=== PATIENT | male | born 1995 | race Asian ===

== ENCOUNTER 2016-06-21 23:38 | Emergency (ER) | payer BC ==
--- NOTE | 2016-06-22 00:22 | ED ---
Abdominal Pain/Male - HPI Summary HPI Summary: The patient is a 20 year old male presenting to ED for complaint of right sided abdominal pain x3 weeks. Describes a constant pain worse after eating. Denies associated fever, chills, diaphoresis, chest pain, cough, shortness of breath, nausea, vomiting, diarrhea, dysuria, change in voiding, hematuria. Denies significant past medical or surgical history. Denies family history. SH: Student at [employer]. - History of Current Complaint Chief Complaint: EDAbdPain Stated Complaint: RLQ ABD PAIN Time Seen by Provider: 06/22/16 00:04 Pain Intensity: 7 - Allergies/Home Medications Allergies/Adverse Reactions: Allergies Allergy/AdvReac Type Severity Reaction Status Date / Time No Known Allergies Allergy Verified 06/21/16 23:43 PMH/Surg Hx/FS Hx/Imm Hx Infectious Disease History: No Infectious Disease History: Denies: Traveled Outside the [place] in Last 30 Days Review of Systems Constitutional: Negative Cardiovascular: Negative Respiratory: Negative Positive: Abdominal Pain. Negative: Vomiting, Diarrhea, Nausea Genitourinary: Negative Negative: dysuria, hematuria Musculoskeletal: Negative Skin: Negative Negative: Rash All Other Systems Reviewed And Are Negative: Yes Physical Exam Triage Information Reviewed: Yes Vital Signs On Initial Exam: Initial Vitals Temp Pulse Resp BP Pulse Ox 99.1 F 85 16 130/76 100 06/21/16 23:42 06/21/16 23:42 06/21/16 23:42 06/21/16 23:42 06/21/16 23:42 Vital Signs Reviewed: Yes Appearance: Positive: Well-Appearing - seated upright in bed speaking calmly without guarding or grimace, No Pain Distress, Well-Nourished Skin: Positive: Warm, Skin Color Reflects Adequate Perfusion, Dry Head/Face: Positive: Normal Head/Face Inspection Eyes: Positive: Other: - Anicteric ENT: Positive: Hearing grossly normal, Other - Oral mucosa moist Neck: Positive: Supple, Nontender, No Lymphadenopathy Respiratory/Lung Sounds: Positive: Clear to Auscultation, Breath Sounds Present. Negative: Decreased Breath Sounds, Rales, Rhonchi, Wheezes Cardiovascular: Positive: Normal, RRR - radial pulse 2+, S1, S2. Negative: Murmur, Rub Abdomen Description: Positive: No Organomegaly, Soft, Other: - minimal tenderness RUQ and right flank; no rebound; no peritonitis. Negative: CVA Tenderness (R), CVA Tenderness (L), Distended, Guarding, Hepatomegaly, McBurney' s Point Tenderness, Peritoneal Signs, Splenomegaly Bowel Sounds: Positive: Present Musculoskeletal: Positive: Normal - AROM all extremities Neurological: Positive: Normal - awake, alert, Facial Symmetry, Speech Normal Psychiatric: Positive: Normal AVPU Assessment: Alert Diagnostics - Vital Signs Vital Signs Temp Pulse Resp BP Pulse Ox 06/21/16 23:42 99.1 F 85 16 130/76 100 - Laboratory Result Diagrams: 06/22/16 01:00 06/22/16 01:00 Lab Statement: Any lab studies that have been ordered have been reviewed, and results considered in the medical decision making process. Re-Evaluation - Re-Evaluation First Eval Re-Evaluation Time: 03:27 Change: Unchanged Comment: Discussed with patient labs, urine, and US results. Is agreeable with plan to obtain CT abd/pelv. Declines need for analgesic. Abdominal Pain Fem Course/Dx - Diagnoses Provider Diagnoses: Abdominal pain - Provider Notifications Discussed Care Of Patient With: Signed out to Dr. Durant [id number]. Discharge - Discharge Plan Condition: Stable Disposition: OTHER Discharge Disposition Comment: Signed out to Dr. Durant
[2016-06-22 01:15] LABS: Hematocrit 43 % (42-52); Hemoglobin 14.4 g/dl (14.0-18.0); Mean Corpuscular HGB Conc 34 g/dl (31-36); Mean Corpuscular Hemoglobin 30 pg (27-31); Mean Corpuscular Volume 89 fL (80-94); Mean Platelet Volume 9 um3 (7.4-10.4); Red Blood Count 4.78 10^6/ul (4.0-5.4); Red Cell Distribution Width 13 % (10.5-15); White Blood Count 10.9 10^3/ul (3.5-10.8)
[2016-06-22 01:17] LABS: Urine Bilirubin Negative (Negative); Urine Glucose Negative (Negative); Urine Nitrite Negative (Negative)
[2016-06-22 01:33] LABS: Albumin 4.8 g/dL (3.2-5.2); Calcium 9.7 mg/dL (8.6-10.3); EGFR African American 115.8 (>60); Globulin 2.8 g/dL (2-4); Potassium 3.8 mmol/L (3.5-5.0); Total Bilirubin 0.8 mg/dL (0.2-1.0); Total Protein 7.6 g/dL (6.4-8.9)
[2016-06-22] MEDS ORDERED: Iohexol 300* (CONTRAST) 10 ML SDV IV ONE (04:37)
--- NOTE | 2016-06-22 05:39 | ED ---
Fidel Frausto Matthew, scribed for Alex Durant on 06/22/16 at 0538 . Progress - Progress Note Progress Note: The patient was a sign out from [facility] The patient will be discharged home in stable condition and follow-up with his PCP. - Results/Orders Results/Orders: A/P W CT Impression: Normal appendix No inflammatory process identified in the abdomen and pelvis No abdominal mass, adenopathy or collection seen. Re-Evaluation - Re-Evaluation First Eval Re-Evaluation Time: :27 Change: Unchanged Comment: Discussed with patient labs, urine, and US results. Is agreeable with plan to obtain CT abd/pelv. Declines need for analgesic. Course/Dx - Diagnoses Provider Diagnoses: Abdominal pain - Provider Notifications Discussed Care Of Patient With: Signed out to Dr. Durant [id number]. The documentation as recorded by the scribeFidel Matthew accurately reflects the service I personally performed and the decisions made by , Alex Durant.
[2016-06-22 05:46] VITALS: BP 98/51
--- NOTE | 2016-06-22 07:49 | RAD ---
HISTORY: Right upper quadrant tenderness, right lower quadrant pain COMPARISONS: None TECHNIQUE: Multiple transverse and longitudinal ultrasound images were obtained of the right upper and lower quadrants of the abdomen using grayscale and color Doppler imaging. FINDINGS: LIVER: The liver is normal in shape, size, contour, and echogenicity. There are no focal parenchymal masses. There is normal hepatopedal flow of the portal vein on Doppler imaging. BILIARY TREE: There is no intrahepatic or extrahepatic biliary dilatation. The common duct measures 0.6 cm. GALLBLADDER: The gallbladder is well-visualized. There is no cholelithiasis, gallbladder wall thickening, pericholecystic fluid, or sonographic Monroe sign. PANCREAS: The head of the pancreas is unremarkable. The tail of the pancreas is not well visualized secondary to overlying bowel gas. RIGHT KIDNEY: The right kidney is normal in shape, size, contour, and echogenicity. There is no hydronephrosis or nephrolithiasis. The right kidney measures 10.2 x 4 x 5.7 cm. AORTA AND IVC: The aorta and IVC are unremarkable. FLUID: There are no pleural effusions. There is no free fluid within the hepatorenal recess. OTHER FINDINGS: The appendix is not identified. No free or loculated fluid is noted within the right lower quadrant. IMPRESSION: NO ACUTE SONOGRAPHIC PATHOLOGY OF THE VISUALIZED PORTION OF THE ABDOMEN.
--- NOTE | 2016-06-22 08:13 | RAD ---
CLINICAL HISTORY: Right lower quadrant pain COMPARISON: None TECHNIQUE: Multiple contiguous axial CT scans were obtained of the abdomen and pelvis after the administration of intravenous contrast. Coronal and sagittal multiplanar reformations are submitted for review. Oral contrast was administered. Delayed images were obtained through the abdomen FINDINGS: LUNG BASES: The lung bases are clear. LIVER: The liver is normal in shape, size, contour, and attenuation. BILE DUCTS: There is no intrahepatic or extrahepatic biliary dilatation. GALLBLADDER: The gallbladder is normal, without pericholecystic inflammatory change. PANCREAS: The pancreas is normal, without mass or ductal dilatation. SPLEEN: Normal in size and appearance. UPPER GI TRACT: Evaluation of the gastrointestinal tract is limited by incomplete gastric distention. The upper GI tract is unremarkable. SMALL BOWEL AND MESENTERY: The small bowel is normal in contour, course, and caliber. There is no obstruction or dilatation. COLON: The colon is normal in contour, course, caliber. There is no pericolonic inflammatory change. There is large amount of stool throughout the colon. There is a tubular, vermiform, hollow viscus that is blind ending, and originates from the cecum, consistent with a normal appendix. There is no periappendiceal inflammatory change. This is best seen on axial images 111 through 122 ADRENALS: Normal bilaterally. KIDNEYS: The kidneys are normal in shape, size, contour, and axis. There is no hydronephrosis or nephrolithiasis. 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 BLADDER: The bladder is smooth in contour. PELVIC ORGANS: The prostate gland is normal. The seminal vesicles are symmetric. AORTA: The aorta is normal. IVC: Unremarkable LYMPH NODES: There is no lymphadenopathy by size criteria. ABDOMINAL WALL: There is no evidence for abdominal wall hernia. BONES AND SOFT TISSUES: The bones and soft tissues are unremarkable. OTHER: None IMPRESSION: NORMAL APPENDIX. NO ACUTE CT PATHOLOGY OF THE VISUALIZED ABDOMEN OR PELVIS.
== END 2016-06-22 05:46 | disposition home or self-care (01) ==
LOC: ED 23:38
DX: R10.31 Right lower quadrant pain (principal)
CPT/HCPCS: 36415; 74177; 76705; 80053; 81003; 83690; 85025; 99283; Q9967

== ENCOUNTER 2018-01-06 16:47 | Emergency (ER) | payer BC, OTHER ==
[2018-01-06 17:34] VITALS: BP 127/84
--- NOTE | 2018-01-06 17:37 | UC ---
Complaint Male HPI - HPI Summary HPI Summary: The pt is a 22 y/o male presenting to complaining of dysuria since 4 days ago worse 2 days ago. He feels like he gets the urge to urinate but is unable to empty his bladder completely. The pain described as burning rated 2/10 in severity. He notes subjective fever, dull R flank pain, and slightly reduced BM but denies loss of appetite, testicular pain, penile discharge, polydipsia, and diarrhea. The pt is not sexually concerned and is not concerned about STIs. He does not have a PCP currently. This is scribe Ragini Peterson documenting for attending Dr. Cyril Guillermo. I, Dr. Cyril Guillermo personally performed the services described in this documentation as scribed in my presence and it is both accurate and complete. - History of Current Complaint Chief Complaint: UCGU Stated Complaint: BURNING URINATION Time Seen by Provider: 01/06/18 17:29 Hx Obtained From: Patient Onset/Duration: Gradual Onset, Lasting Days - 4 days, Still Present, Worse Since - 2 days ago Timing: Constant Severity Initially: Mild Severity Currently: Mild Pain Intensity: 3 Pain Scale Used: 0-10 Numeric Location: Groin Character: Burning Associated Signs And Symptoms: Positive: Back Pain - R flank pain, Fever - Subjective, Dysuria, Constipation. Negative: Appetite - Negative: Loss of appetite, Penile Discharge - Allergies/Home Medications Allergies/Adverse Reactions: Allergies Allergy/AdvReac Type Severity Reaction Status Date / Time No Known Allergies Allergy Verified 01/06/18 17:37 PMH/Surg Hx/FS Hx/Imm Hx Previously Healthy: Yes - Denies PMHx of HTN, DM and HLD - Surgical History Surgical History: None - Family History Known Family History: Negative: Cardiac Disease, Hypertension, Diabetes - Social History Occupation: Unemployed Lives: With Family Alcohol Use: Weekly Substance Use Type: None Smoking Status (MU): Never Smoked Tobacco Review of Systems Constitutional: Fever - Subjective Gastrointestinal: Negative - Diarrhea , loss of appetite, polydipsia Genitourinary: Negative - Penile discharge, testicular pain, Dysuria, Urgency Musculoskeletal: Other: - Positive: R flank pain All Other Systems Reviewed And Are Negative: Yes Physical Exam - Summary Physical Exam Summary: General: well-appearing, no acute distress Skin: warm, color reflects adequate perfusion, dry Head: normal Eyes: EOMI, ARACELIS ENT: normal Neck: supple, nontender Respiratory: CTA, breath sounds present Cardiovascular: RRR Abdomen: soft ; CVA tenderness; mild tenderness to percussion of RLQ ; no rebound Bowel: present Musculoskeletal: normal, strength/ROM intact Neurological: sensory/motor intact, A&O x3 Psychological: affect/mood appropriate Triage Information Reviewed: Yes Vital Signs: Initial Vital Signs Temp 99.6 F 01/06/18 17:29 Pulse 54 01/06/18 17:29 Resp 16 01/06/18 17:29 BP 127/84 01/06/18 17:29 Pulse Ox 100 01/06/18 17:29 Vital Signs Reviewed: Yes Re-Evaluation - Re-Evaluation First Eval Re-Evaluation Time: 18:14 Change: Unchanged - Discussed the discharge plan with the patient and the patient is agreeable with this plan. Complaint Male Course/Dx - Course Course Of Treatment: WILL TREAT PROSTATITIS. NOT SEXUALLY ACTIVE. DISCUSSED UA RESULTS WITHTHE PATIENT. NO POLYDIPSIA, NO GLUCOSE/KETONES IN URINE. PAIN NOT SEVERE IN A KIDNEY STONE AT THIS TIME. GOOD APPETITIE AND NO RLQ REBOUND. DISCUSSES S/SX OF APPENDICITIS. PATIENT KNOW TO GO TO ED IF WORSE. - Differential Dx/Diagnosis Provider Diagnoses: DYSURIA. RLQ ABDOMINAL PAIN. RT FLANK PAIN Discharge - Sign-Out/Discharge Documenting (check all that apply): Patient Departure - Discharge Plan Condition: Stable Disposition: HOME Prescriptions: Sulfamethox/Trimethoprim DS* [Bactrim DS 800/160 TAB*] 1 tab PO BID #28 tab Patient Education Materials: Dysuria (ED), Abdominal Pain (ED), Flank Pain (ED) Referrals: [facility] [place] [place] [facility] REFERRAL [Outside] Additional Instructions: FOLLOW UP WITH YOUR DOCTOR IF NOT COMPLETELY IMPROVED. GET RECHECKED FOR ANY WORSENING OF YOUR CONDITION; NAUSEA, PAIN, FEVER, YOU FEEL ILL OR QUESTIONS OR CONCERNS. - Billing Disposition and Condition Condition: STABLE Disposition: Home
== END 2018-01-06 18:15 | disposition home or self-care (01) ==
LOC: UCEAST 16:47
DX: R30.0 Dysuria (principal); R10.31 Right lower quadrant pain; M54.9 Dorsalgia, unspecified
CPT/HCPCS: 81003; 87086; 99212; G0463

== ENCOUNTER → 2018-03-27 12:47 | Emergency (ER) | payer OTHER ==
[~2018-03-27 12:47] MED LIST: Meclizine TAB* 12.5 MG PO ONE; NS 0.9% 1000 ML* 2,000 ML IV ONE
[2018-03-27 13:50] LABS: ABS Basophils 0.1 10^3/ul (0-0.2); ABS Eosinophils 0 10^3/ul (0-0.6); ABS Lymphocytes 1.4 10^3/ul (1.0-4.8); ABS Monocytes 0.3 10^3/ul (0-0.8); ABS Neutrophils 2.6 10^3/ul (1.5-7.7); ABS Nucleated RBC 0 10^3/ul; Eosinophil % 0.5 % (0-6); Hematocrit 45 % (42-52); Hemoglobin 15.4 g/dl (14.0-18.0); Mean Corpuscular HGB Conc 34 g/dl (31-36); Mean Corpuscular Hemoglobin 31 pg (27-31); Mean Corpuscular Volume 90 fL (80-94); Mean Platelet Volume 8.8 um3 (7.4-10.4); Nucleated Red Blood Cells % 0; Platelet Count 235 10^3/ul (150-450); Red Blood Count 5.02 10^6/ul (4.00-5.40); Red Cell Distribution Width 13 % (10.5-15); White Blood Count 4.4 10^3/ul (3.5-10.8)
[2018-03-27 14:09] LABS: Urine Appearance Clear; Urine Blood Negative (Negative); Urine Color Straw; Urine Ketones Negative (Negative); Urine Protein Negative (Negative); Urine Specific Gravity 1.005 (1.010-1.030); Urine Urobilinogen Negative (Negative)
[2018-03-27 14:10] LABS: EGFR Non-African American 99.1 (>60)
--- NOTE | 2018-03-27 14:20 | ED ---
Dizziness - HPI Summary HPI Summary: A 22 y/o M presents to ED with c/o sudden-onset dizziness four days ago, lasting 2 seconds. Hes been having similar episodes more frequently in the past four days. The dizziness usually occurs when hes focusing, reading. Associated sx: lightheaded, as if he might pass out; occipital KURTZ described as pressure and throbbing. Hes been having intermittent fevers/hot flashes for two weeks. Pt also notes chronic urinary retention and hesitancy for past six months. Hes unsure if the dizziness is related. He denies photophobia, blurry vision, diplopia, seeing spots, n/v, dysuria, testicular pain, genital swelling or nodules, early satiety. Associated sx: Mild diffuse abd pain; diarrhea onset 2-3 weeks. The diarrhea usually resolves the abd pain. Pt was seen at [facility] , and given a 7-day course of Bactrim. Urine culture showed no growth. The diarrhea began after the course of ABX. No daily medications, NKDA. Vital signs while in room: HR 69 bpm, BP 122/84. Home Medications Medication Instructions Recorded Confirmed Type NK [No Home Medications Reported] 03/27/18 03/27/18 History - History Of Current Complaint Chief Complaint: EDDizziness Stated Complaint: DIZZINESS X4DAYS/FEVER Time Seen by Provider: 03/27/18 12:54 Hx Obtained From: Patient Onset/Duration: Resolved, Suddenly Timing: Intermittent Episode Lasting - lasting seconds; occuring multiple times over 4 days Severity Initially: Moderate Severity Currently: Moderate Character: Lightheaded, Dizzy Aggravating Factor(s): Other - studying / focusing Alleviating Factor(s): Nothing - spontaneous resolution Associated Signs And Symptoms: Positive: Diarrhea, Fever - subjective, Other: - pos: KURTZ, urinary retention and hesitancy, mild abd pain. neg: photophobia, blurry vision, diplopia, seeing spots, n/v, dysuria, testicular pain, genital swelling or nodules, early satiety.. Negative: Visual Changes - Allergies/Home Medications Allergies/Adverse Reactions: Allergies Allergy/AdvReac Type Severity Reaction Status Date / Time No Known Allergies Allergy Verified 01/06/18 17:37 PMH/Surg Hx/FS Hx/Imm Hx Previously Healthy: Yes Endocrine/Hematology History: Denies: Hx Diabetes Cardiovascular History: Denies: Hx Hypertension History: Denies: Hx Dialysis, Hx Renal Disease - Surgical History Surgery Procedure, Year, and Place: none Infectious Disease History: No Infectious Disease History: Denies: Traveled Outside the [place] in Last 30 Days - Family History Known Family History: Negative: Cardiac Disease, Hypertension, Diabetes Family History: pos: prostate CA (grandfather); neg: migraines, neurological disease, sudden - Social History Occupation: Employed Full-time Lives: Dormitory/Roommates Alcohol Use: Weekly Hx Substance Use: Yes Substance Use Type: Reports: Marijuana Substance Use Comment - Amount & Last Used: biweekly Hx Tobacco Use: No Smoking Status (MU): Never Smoked Tobacco Review of Systems Positive: Fever - subjective Negative: Photophobia, Blurred Vision, Diplopia Cardiovascular: Negative Respiratory: Negative Positive: Abdominal Pain, Diarrhea. Negative: Vomiting, Nausea Positive: other - pos: urinary retention and hesitancy. neg: testiucular pain. Negative: dysuria Skin: Negative Neurological: Other - pos: dizziness/lightheadedness Positive: Headache Psychological: Normal All Other Systems Reviewed And Are Negative: Yes Physical Exam - Summary Physical Exam Summary: Appearance: Well-appearing, moderate pain distress with occipital headache, well -nourished Skin: Warm, color reflects adequate perfusion, dry Head: Normal Head/Face inspection, atraumatic Eyes: Conjunctiva clear, PERRL, EOMI, no nystagmus ENT: Normal inspection, TM's with some cerumen bilaterally, but light reflex normal bilaterally, and no airfluid level, redness or abnormality noted. Neck: Supple, no nodes, no JVD Respiratory: Lungs clear, normal breath sounds, no respiratory distress Cardio: RRR, No murmur, pulses normal, brisk capillary refill Abdomen: Soft, nontender Bowel sounds: Present Musculoskeletal: Strength Intact/ROM intact, no calf tenderness, no edema. Psychological: Normal Neuro: Alert, O x 3, CN II-XII intact, Motor 5/5, Sensation intact to light touch, Gait normal. Genital: LAUREN Kidd present as hvac instructor. Testes descended, nontender, no hernia inguinal or femoral, penis is circumcised. GCS: 15 Triage Information Reviewed: Yes Vital Signs On Initial Exam: Initial Vitals Temp Pulse Resp BP Pulse Ox 99.3 F 68 18 124/88 99 03/27/18 12:50 03/27/18 12:50 03/27/18 12:50 03/27/18 12:50 03/27/18 12:50 Vital Signs Reviewed: Yes - Nathan Coma Scale Best Eye Response: 4 - Spontaneous Best Motor Response: 6 - Obeys Commands Best Verbal Response: 5 - Oriented Coma Scale Total: 15 Diagnostics - Vital Signs Vital Signs Temp Pulse Resp BP Pulse Ox 03/27/18 13:47 69 122/84 03/27/18 13:46 53 121/81 03/27/18 12:50 99.3 F 68 18 124/88 99 - Laboratory Lab Results: Lab Results 03/27/18 03/27/18 03/27/18 Range/Units 13:36 13:36 13:36 WBC 4.4 (3.5-10.8) 10^3/ul RBC 5.02 (4.00-5.40) 10^6/ul Hgb 15.4 (14.0-18.0) g/dl Hct 45 (42-52) % MCV 90 (80-94) fL MCH 31 (27-31) pg MCHC 34 (31-36) g/dl RDW 13 (10.5-15) % Plt Count 235 (150-450) 10^3/ul MPV 8.8 (7.4-10.4) um3 Neut % (Auto) 59.4 (38-83) % Lymph % (Auto) 33.0 (25-47) % Reno % (Auto) 5.8 (0-7) % Eos % (Auto) 0.5 (0-6) % Baso % (Auto) 1.3 (0-2) % Absolute Neuts (auto) 2.6 (1.5-7.7) 10^3/ul Absolute Lymphs (auto) 1.4 (1.0-4.8) 10^3/ul Absolute Monos (auto) 0.3 (0-0.8) 10^3/ul Absolute Eos (auto) 0 (0-0.6) 10^3/ul Absolute Basos (auto) 0.1 (0-0.2) 10^3/ul Absolute Nucleated RBC 0 10^3/ul Nucleated RBC % 0 ESR Pending Sodium 139 (135-145) mmol/L Potassium 4.2 (3.5-5.0) mmol/L Chloride 105 (101-111) mmol/L Carbon Dioxide 28 (22-32) mmol/L Anion Gap 6 (2-11) mmol/L BUN 13 (6-24) mg/dL Creatinine 0.95 (0.67-1.17) mg/dL Est GFR ( Amer) 120.0 (>60) Est GFR (Non-Af Amer) 99.1 (>60) BUN/Creatinine Ratio 13.7 (8-20) Glucose 100 (70-100) mg/dL Lactic Acid 1.0 (0.5-2.0) mmol/L Calcium 9.8 (8.6-10.3) mg/dL Total Bilirubin 0.80 (0.2-1.0) mg/dL AST 16 (13-39) U/L ALT 8 (7-52) U/L Alkaline Phosphatase 57 (34-104) U/L C-Reactive Protein < 1.00 (<8.01) mg/L Total Protein 7.6 (6.4-8.9) g/dL Albumin 4.8 (3.2-5.2) g/dL Globulin 2.8 (2-4) g/dL Albumin/Globulin Ratio 1.7 (1-3) Urine Color Urine Appearance Urine pH (5-9) Ur Specific Lynch (1.010-1.030) Urine Protein (Negative) Urine Ketones (Negative) Urine Blood (Negative) Urine Nitrate (Negative) Urine Bilirubin (Negative) Urine Urobilinogen (Negative) Ur Leukocyte Esterase (Negative) Urine Glucose (Negative) Monoscreen Pending Influenza A (Rapid) (Negative) Influenza B (Rapid) (Negative) 03/27/18 03/27/18 Range/Units 13:55 13:55 WBC (3.5-10.8) 10^3/ul RBC (4.00-5.40) 10^6/ul Hgb (14.0-18.0) g/dl Hct (42-52) % MCV (80-94) fL MCH (27-31) pg MCHC (31-36) g/dl RDW (10.5-15) % Plt Count (150-450) 10^3/ul MPV (7.4-10.4) um3 Neut % (Auto) (38-83) % Lymph % (Auto) (25-47) % Reno % (Auto) (0-7) % Eos % (Auto) (0-6) % Baso % (Auto) (0-2) % Absolute Neuts (auto) (1.5-7.7) 10^3/ul Absolute Lymphs (auto) (1.0-4.8) 10^3/ul Absolute Monos (auto) (0-0.8) 10^3/ul Absolute Eos (auto) (0-0.6) 10^3/ul Absolute Basos (auto) (0-0.2) 10^3/ul Absolute Nucleated RBC 10^3/ul Nucleated RBC % ESR Sodium (135-145) mmol/L Potassium (3.5-5.0) mmol/L Chloride (101-111) mmol/L Carbon Dioxide (22-32) mmol/L Anion Gap (2-11) mmol/L BUN (6-24) mg/dL Creatinine (0.67-1.17) mg/dL Est GFR ( Amer) (>60) Est GFR (Non-Af Amer) (>60) BUN/Creatinine Ratio (8-20) Glucose (70-100) mg/dL Lactic Acid (0.5-2.0) mmol/L Calcium (8.6-10.3) mg/dL Total Bilirubin (0.2-1.0) mg/dL AST (13-39) U/L ALT (7-52) U/L Alkaline Phosphatase (34-104) U/L C-Reactive Protein (<8.01) mg/L Total Protein (6.4-8.9) g/dL Albumin (3.2-5.2) g/dL Globulin (2-4) g/dL Albumin/Globulin Ratio (1-3) Urine Color Straw Urine Appearance Clear Urine pH 8.0 (5-9) Ur Specific Lynch 1.005 L (1.010-1.030) Urine Protein Negative (Negative) Urine Ketones Negative (Negative) Urine Blood Negative (Negative) Urine Nitrate Negative (Negative) Urine Bilirubin Negative (Negative) Urine Urobilinogen Negative (Negative) Ur Leukocyte Esterase Negative (Negative) Urine Glucose Negative (Negative) Monoscreen Influenza A (Rapid) Negative (Negative) Influenza B (Rapid) Negative (Negative) Result Diagrams: 03/27/18 13:36 03/27/18 13:36 Lab Statement: Any lab studies that have been ordered have been reviewed, and results considered in the medical decision making process. - CT BRAIN CT Interpretation Completed By: Radiologist Summary of CT Findings: IMPRESSION: Normal brain CT. ED provider has reviewed this report. Re-Evaluation - Re-Evaluation 1 Re-Evaluation Time: 14:17 Change: Unchanged Comment: Post-void residual is 198. During orthostatics: pulse went from 57 to 69 bpm, and BP remained the same. 2 Re-Evaluation Time: 14:32 Change: Unchanged Comment: Discussing consult with Dr. Bedoya with pt. Performed exam, see PE section. 3 Re-Evaluation Time: 15:22 Change: Unchanged Comment: 2nd residual: 35. Pt is still feeling mildly dizzy. Will continue fluids. 4 Re-Evaluation Time: 16:14 Change: Unchanged Comment: Still has dizzy, described as a head lara, it comes on when he stands up. He denies KURTZ. He's willing to try Meclizine. Agreeable to Brain CT as well. BP: 102/66. 5 Re-Evaluation Time: 17:27 Change: Improved Comment: Discussing CT results and plans for dispo. Pt will f/u with urology and ENT. Pt states mild dizziness remains, but he is feeling better. Dizzy Course/Dx - Course Course Of Treatment: Pt is a healthy 22 y/o M presents with multiple sx: intermittent episodes of dizziness lasting approx 2 seconds occuring over past 4 days; urinary rentention and hesitancy for six months. Associated sx include KURTZ, subjective fevers, lightheadedness, abd pain, diarrhea. Pt denies having vision changes, dysuria, testicular and genital pain/swelling/nodules. Pt took 7 -day course of Bactrim 01/06/18, but urine culture was ultimately negative. UA is negative today also. Labs are WNL. Reno, strep and rapid flu are all negative. First post-void residual was 198. Second was 35. Brain CT is unremarkable.Given meclizine 25mg with some relief. Consulted with Dr. Bedoya, he approves pt following-up in office. Pt will f/u with Dr. Bedoya as well as Dr. Ruparelia, ENT. Allergies noted. Pt medications reviewed this visit. Rx for meclizine given, which helped some in the ED. GC/Chlamydid and Lyme titers pending at time of discharge. - Diagnoses Differential Diagnosis/HQI/PQRI: Benign Paroxysmal Positional Vertigo, Hypovolemia, Metabolic Abnormality, Transient Ischemic Attack, Other - UTI, STD , Lyme disease Provider Diagnoses: Vertigo, Urinary retention, Cephalgia - Provider Notifications Discussed Care Of Patient With: Maurice Bedoya - uro Time Discussed With Above Provider: 14:29 Instructed by Provider To: Have Pt Call For Appt. - Will see in office. Suspects it may be urethral stricture. Discharge - Sign-Out/Discharge Documenting (check all that apply): Patient Departure - DC - Discharge Plan Condition: Stable Disposition: HOME Prescriptions: Meclizine TAB* [Antivert 12.5 TAB*] 25 mg PO TID PRN #30 tab PRN Reason: Dizziness Patient Education Materials: Meclizine (By mouth), Urinary Retention in Men (ED ), Vertigo (ED) Referrals: Maurice Bedoya MD [Medical Doctor] - As Soon As Possible (Call the office to follow up STACIA.) [facility] [place] [facility] [Outside] Raman Rodriguez MD [Medical Doctor] - As Soon As Possible Additional Instructions: You were given Meclizine 25mg at 4:30pm, and the GC/Chalmydia test is still pending at discharge, we'll contact you with results if you need additional care. Contact Dr. Bedoya, urology, as soon as possible to make an appointment. Contact Dr. Rodriguez, ENT, as soon as possible to make an appointment. Please establish with a primary care provider. RETURN TO THE EMERGENCY DEPARTMENT FOR CHANGING OR WORSENING SYMPTOMS. - Billing Disposition and Condition Condition: STABLE Disposition: Home - Attestation Statements Document Initiated by Scribe: Yes Documenting Scribe: Chavo Oshea Provider For Whom Scribe is Documenting (Include Credential): Dr. Nupur Holden MD Scribe Attestation: Chavo Frausto, scribed for Dr. Nupur Holden MD on 03/31/18 at 0901. Scribe Documentation Reviewed: Yes Provider Attestation: The documentation as recorded by the Chavo contreras accurately reflects the service I personally performed and the decisions made by me, Dr. Nupur Holden MD
--- NOTE | 2018-03-27 16:56 | RAD ---
INDICATION: Dizziness and posterior headache COMPARISON: None. TECHNIQUE: Contiguous axial sections of the brain were obtained from the skull base to the vertex without contrast. FINDINGS: The ventricles, cisterns and sulci are within normal limits. The perez-white matter differentiation is adequately maintained and there is no sulcal effacement. No significant focal abnormality or mass effect is present. There is no evidence for intracranial hemorrhage. No significant focal osseous abnormality is present. The visualized portion of the paranasal sinuses appear clear. The mastoid air cells are well aerated bilaterally. IMPRESSION: Normal CT of the brain.
[2018-03-27 18:15] VITALS: BP 104/60
== END | disposition home or self-care (01) ==
LOC: ED 12:47
DX: R42 Dizziness and giddiness (principal); R33.9 Retention of urine, unspecified; R51 Headache; R19.7 Diarrhea, unspecified
CPT/HCPCS: 36415; 70450; 80053; 81003; 83605; 85025; 85652; 86140; 86308; 86618; 86664; 86665; 87086; 87491; 87591; 87651; 96360; 96361; 99283; A9270-GY

== ENCOUNTER 2018-10-11 11:44 | Emergency (ER) | payer OTHER ==
[2018-10-11 12:02] VITALS: BP 103/64
--- NOTE | 2018-10-11 12:08 | UC ---
Complaint Male HPI - HPI Summary HPI Summary: CHIEF COMPLAINT and HPI: This is a 23-year-old male with a chief complaint of frequency and difficulty urinating as well as straining to urinate. History goes back more than one year. There is also mild discomfort of the right back. Patient denies fever. Note is made of a previous visit with similar complaint on January 06, 2018. Patient denies present or past hx of STD. No pain. VITAL SIGNS & SaO2 REVIEWED. Within normal limits unless noted here. Temp=99/ NURSES NOTE REVIEWED. Pt states difficulty urinating. Pt states frequent starting and stopping. Pt states a persistant feeling of not being able to empty his bladder. Pt complains of mild right side back pain. Pt denies fever. - History of Current Complaint Chief Complaint: UCGU Stated Complaint: PERSONAL Time Seen by Provider: 10/11/18 12:04 Pain Intensity: 0 - Allergies/Home Medications Allergies/Adverse Reactions: Allergies Allergy/AdvReac Type Severity Reaction Status Date / Time No Known Allergies Allergy Verified 10/11/18 11:50 PMH/Surg Hx/FS Hx/Imm Hx - Additional Past Medical History Additional PMH: PAST MEDICAL HISTORY- significant for previous visit for hesitancy and frequency. Diagnosis at that time was prostatitis and the patient was started on 14 days of Bactrim. CHRONIC and RECURRENT HEALTH PROBLEM LIST REVIEWED. Information relevant to present complaint: Patient has a previous workup for appendicitis that was negative in 2017. VISIT HISTORY REVIEWED. MEDICATIONS & ALLERGIES REVIEWED. HYPERTENSION STATUS: None FAMILY HISTORY: Positive for: , cancer. Patient denies family history of: hypertension, cardiovascular disease, stroke, diabetes. SOCIAL HISTORY: non-smoker, lives with 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 Patient denies hx of STD; only has been with two female partners. Previously Healthy: Yes - Surgical History Surgical History: None Surgery Procedure, Year, and Place: none - Family History Known Family History: Negative: Cardiac Disease, Hypertension, Diabetes Family History: pos: prostate CA (grandfather); neg: migraines, neurological disease, sudden - Social History Alcohol Use: Weekly Substance Use Type: Marijuana Substance Use Comment - Amount & Last Used: biweekly Smoking Status (MU): Never Smoked Tobacco Review of Systems All Other Systems Reviewed And Are Negative: Yes Constitutional: Positive: Negative. Negative: Fever Respiratory: Positive: Shortness Of Breath - sometimes gets short of breath at work. Cardiovascular: Positive: Negative. Negative: Palpitations Gastrointestinal: Positive: Negative. Negative: Abdominal Pain Genitourinary: Positive: Frequency, Urgency, Other - straining to urinate. Negative: Dysuria, Hematuria Is Patient Immunocompromised?: No Physical Exam - Summary Physical Exam Summary: Appearance: The patient is well-appearing, is in no pain or distress, and is well-nourished. Eyes: Conjunctiva are clear. Pupils are equal and reactive to light and accommodation. Extra ocular muscle movement is intact. ENT: The hearing is grossly normal, the pharynx is normal, and the TMs are normal. There is no muffled or hoarse voice. No stridor. Neck: The neck is supple and there is no lymphadenopathy. Respiratory: The chest is non-tender to palpation and without crepitus. The lungs are clear, there are normal breath sounds, and there is no respiratory distress. No wheezes, rales or rhonchi. Cardiovascular: Heart sounds reveal a regular rate and rhythm. There are no clicks, rubs or murmurs. There are no carotid bruits or thrills. Circulation is grossly intact. Abdomen: The abdomen is soft and nontender. There is no organomegaly. Bowel sounds are present and within normal limits. No point tenderness at McBurneys point. No CVA tenderness. No bladder tenderness. Musculoskeletal: Strength is intact. The patient moves all extremities. Neurological: The patient is alert. Motor and sensory are examination grossly intact. Speech is normal. Psychological: The patient displays age appropriate behavior, and is conversant. GCS=15. Skin: Negative for rashes. Laboratory Tests 10/11/18 12:42 POC Urine Color Light yellow POC Urine Clarity Clear POC Urine pH 7.0 POC Ur Specif Parnell 1.010 POC Urine Protein Negative POC Ur Glucose (UA) Negative POC Urine Ketones Negative POC Urine Blood Negative POC Urine Nitrite Negative POC Urine Bilirubin Negative POC Urine Urobilinogen 0.2 POC U Leukocyte Esteras Negative Triage Information Reviewed: Yes Vital Signs: Initial Vital Signs Temp 99.0 F 10/11/18 11:50 Pulse 53 10/11/18 11:50 Resp 18 10/11/18 11:50 BP 103/64 10/11/18 11:50 Pulse Ox 100 10/11/18 11:50 Vital Signs Reviewed: Yes Complaint Male Course/Dx - Course Course Of Treatment: MEDICAL DECISION MAKING and PLAN: This is a 23-year-old male with a chief complaint of frequency and difficulty urinating as well as straining to urinate. He has a poor stream and he frequently needs to urinate every 2 hours. He feels as if there is a residual urine in the bladder after he urinates. History goes back more than one year. There is also mild discomfort of the right back. Patient denies fever. Note is made of a previous visit with similar complaint on January 06, 2018. Patient denies present or past hx of STD. No pain. In talking to the patient and through his physical examination, it becomes clear that this may be a mechanical problem with prostatic hypertrophy or some sort of malformation, a stricture or some obstruction to normal urination. His physical exam is unremarkable. I will start him on Septra for 14 days. 2. Guarding against prostatitis, but most importantly I will refer him to urology for further evaluation of this long-standing condition. Discussed this plan at length with the patient and he is eager to follow up. MEDICATIONS REVIEWED. HYPERTENSION STATUS REVIEWED WITH PATIENT IF blood pressure is above 120/80. In the bladder after he urinates. - Differential Dx/Diagnosis Differential Diagnosis/HQI/PQRI: Prostatitis, Urinary Tract Infection, Other - prostatic hypertrophy Provider Diagnosis: Prostatic disease or syndrome, Urinary (tract) obstruction Discharge - Sign-Out/Discharge Documenting (check all that apply): Patient Departure All imaging exams completed and their final reports reviewed: No Studies - Discharge Plan Condition: Stable Disposition: HOME Patient Education Materials: Urinary Urgency and Frequency (DC) Referrals: No Primary Care Phys,NOPCP [Primary Care Provider] - Additional Instructions: WE DISCUSSED: PLEASE SEEK CARE AT THE EMERGENCY DEPARTMENT IF SYMPTOMS WORSEN OR IF NEW SYMPTOMS DEVELOP. FOLLOW UP WITH YOUR PRIMARY CARE PHYSICIAN IF CONDITION CONTINUES BEYOND 3 DAYS WITHOUT IMPROVEMENT. YOUR DIAGNOSIS IS: urine urgency, frequency, strain YOUR PRESCRIPTION RECOMMENDATION IS: Septra, twice a day for 14 days. OTHER INSTRUCTIONS: CALL AND SEE UROLOGY as soon as you can. Recheck at any time for increased pain, temperature or new symptoms. - Billing Disposition and Condition Condition: STABLE Disposition: Home
== END 2018-10-11 13:17 | disposition home or self-care (01) ==
LOC: UCEAST 11:44
DX: N42.9 Disorder of prostate, unspecified (principal); N13.9 Obstructive and reflux uropathy, unspecified; M54.9 Dorsalgia, unspecified
CPT/HCPCS: 81003; 99212; G0463